=== PATIENT | female | born 1995 | race Caucasian/White ===

== ENCOUNTER 2024-06-27 15:25 | Emergency (ER) | payer OTHER, SELFPAY ==
[2024-06-27 15:30] VITALS: BP 168/111; PULSE 112; TEMP 37.1; O2SAT 97
--- NOTE | 2024-06-27 15:43 | XR_ITS ---
The [address] [address] Patient Name: ANALI NEGRETE MRN: [id number] date: 1995 Sex: F Assigned Patient Location: ER Current Patient Location: ED.MAIN Accession/Order Number: [id number] Exam Date: 06/27/2024 15:50 Report Date: 06/27/2024 16:43 At the request of: ANA CONWAY Procedure: XR chest 1V EXAM: XR chest 1V HISTORY: sob COMPARISON: None. TECHNIQUE: AP upright chest x-ray. FINDINGS: Visualized lungs clear without infiltrate or edema or other acute process. Somewhat limited visualization left lung base due to overlying soft tissues. Heart size normal for technique, accentuated by magnification. No pleural effusion or pneumothorax. XR/XR chest 1V IMPRESSION: Negative chest x-ray, no acute appearing abnormality Electronically authenticated by: GEOVANNI MIRANDA Date: 06/27/2024 16:43
[2024-06-27 15:52] LABS: Influenza Virus A Antigen Negative; Influenza Virus B Antigen Negative; Internal Control Within Normal Limits; SARS-CoV-2 Ag NEGATIVE (NEGATIVE)
[2024-06-27 15:58] VITALS: PULSE 100; O2SAT 99
[2024-06-27] MEDS: IPRATROPIUM/ALBUTEROL SULFATE 3 ML AMPUL.NEB IH (16:18)
[2024-06-27] MEDS: PREDNISONE 20 MG TABLET 40 MG PO (16:20)
[2024-06-27 16:23] VITALS: BP 151/90; PULSE 103; O2SAT 100
--- NOTE | 2024-06-27 16:49 | ED_ITS ---
HPI - URI/Sore Throat General Chief Complaint: Upper Respiratory Infection Stated Complaint: COUGH, WHEEZING Time Seen by Provider: 06/27/24 15:39 Source: patient History of Present Illness HPI Narrative: The patient presented to us with 2 days history of cough associated with the shortness of breath and increased use of her inhaler, she also mentions some change in voice No exposure to anybody with similar symptoms Related Data Previous Rx's ?Medication ?Instructions ?Recorded prednisone 20 mg tablet 40 mg (2 x 20 mg) PO DAILY 5 days 06/27/24 #10 tabs Allergies Allergy/AdvReac Type Severity Reaction Status Date / Time No Known Drug Allergies Allergy Verified 06/27/24 15:35 Review of Systems ROS Status of ROS 10 or more systems reviewed and unremark able except as noted in history and below PFSH PFSH Social History Little interest or pleasure in doing things: not at all Feeling down, depressed, or hopeless: not at all Exam Narrative Exam Narrative: Nurses notes and vital signs reviewed and patient is not hypoxic. General: Well-appearing and in no apparent distress. Skin: Warm, dry, no pallor noted. No rash. Head: Normocephalic, atraumatic. Neck: Supple, non-tender. Eye: Pupils are equal, round and EOMI. No scleral icterus. Ears, Nose, Mouth, and Throat: TM are clear, no nasal mucosal hypertrophy. Oral mucosa is moist, no posterior oropharynx erythema, uvula is mid-line Cardiovascular: Regular Rate and Rhythm without murmur, gallop or rub. Respiratory: Bilateral lung wheezes in both lung elizondo with decreased air entry in the bases Back: No midline thoracic or lumbar vertebral tenderness. No CVA tenderness Musculoskeletal: normal ROM, no calf or popliteal tenderness, no lower extremity edema/swelling GI: Abdomen is soft, non-distended. Normal bowel sounds. No masses appreciated. No tenderness to palpation. No rebound, guarding, or rigidity noted. Neurological: A&O x4. No cranial nerve dysfunction observed. No truncal ataxia. Moves all extremities. Sensation intact. Psychiatric: Cooperative and interactive. Normal mood and affect. Constitutional Vital Signs, click to edit/add: Last Vital Signs Temp 98.7 F 06/27/24 15:30 Pulse 96 H 06/27/24 16:59 Resp 18 06/27/24 16:59 BP 126/88 06/27/24 16:59 Pulse Ox 100 06/27/24 16:59 O2 Del Method Room Air 06/27/24 15:58 Course Vital Signs Vital signs: Vital Signs Temperature 98.7 F 06/27/24 15:30 Pulse Rate 112 H 06/27/24 15:30 Respiratory Rate 18 06/27/24 15:30 Blood Pressure 168/111 H 06/27/24 15:30 Pulse Oximetry 97 06/27/24 15:30 Oxygen Delivery Method Room Air 06/27/24 15:30 Temperature 98.7 F 06/27/24 15:30 Pulse Rate 96 H 06/27/24 16:59 Respiratory Rate 18 06/27/24 16:59 Blood Pressure 126/88 06/27/24 16:59 Pulse Oximetry 100 06/27/24 16:59 Oxygen Delivery Method Room Air 06/27/24 15:58 MDM - URI/Sore Throat MDM Narrative Medical decision making narrative: The patient COVID flu test are negative and her chest x-ray showed no acute pathology Patient treated as possible asthma exacerbation mostly secondary to viral illness with the prednisone The patient is to follow up with primary care physician in next 2-3 days or to return to the emergency department should any of the signs or symptoms worsen or new symptoms develop. The patient agrees with the following Diagnosis and Treatment plan and the patient will be discharged home. Lab Data Labs: Lab Results 06/27/24 Range/Units 15:35 Influenza Type A Ag Negative Influenza Type B Ag Negative SARS-CoV-2 Ag (CV2AG) Negative (NEGATIVE) Discharge Plan Discharge Chief Complaint: Upper Respiratory Infection Clinical Impression: Laryngitis, Acute viral syndrome, Asthma exacerbation Patient Disposition: Home, Self-Care Time of Disposition Decision: 16:55 Condition: Good Prescriptions / Home Meds: New prednisone 20 mg tablet 40 mg PO DAILY 5 Days Qty: 10 0RF Print Language: Thai Instructions: Viral Syndrome (ED) Referrals: Physician,Non-Staff, MD [Primary Care Provider] - 1 week Discharge Date/Time: 06/27/24 17:00
[2024-06-27 16:59] VITALS: BP 126/88; PULSE 96; O2SAT 100
== END 2024-06-27 17:00 | disposition home or self-care (01) ==
PROVIDERS: Emergency Provider Emergency Medicine
DX: J04.0 Acute laryngitis (principal); B34.9 Viral infection, unspecified; J45.901 Unspecified asthma with (acute) exacerbation
CPT/HCPCS: 71045; 87804; 87811; 94640; 99284; J7512